=== PATIENT | female | born 1935 | race Hispanic/Latino ===

== ENCOUNTER 2019-03-15 12:18 | Emergency (ER) | payer MEDICARE ==
[2019-03-15 13:01] LABS: EOSINOPHILS % (AUTO) 1.2 % (0.0-8.0); HEMATOCRIT 39.9 % (36-48); LYMPHOCYTES % (AUTO) 30.3 % (21.0-51.0); MEAN CORPUSCULAR HEMOGLOBIN 30.8 pg (27.0-33.0); MEAN CORPUSCULAR HGB CONC 33.3 g/dL (32.0-36.0); MEAN CORPUSCULAR VOLUME 92.5 fL (79-99); MONOCYTES % (AUTO) 5.8 % (3.0-13.0); NEUTROPHILS % (AUTO) 60.7 % (40.0-77.0); NUCLEATED RED BLOOD CELLS 0.1 % (0.0-0.19); PLATELET COUNT (AUTO) 268 K/uL (130-400); RED BLOOD CELL COUNT(AUTO) 4.32 MIL/uL (4.00-5.50); RED CELL DISTRIBUTION WIDTH 13.9 % (11.0-15.5); WHITE BLOOD COUNT (AUTO) 8.8 K/uL (4.8-10.8)
[2019-03-15] MEDS ORDERED: MORPHINE SULFATE 4 MG/1ML SYG ONE (13:03)
[2019-03-15] MEDS ORDERED: ONDANSETRON HCL 4 MG/2 ML VIAL ONE (13:03)
[2019-03-15 13:14] LABS: ALANINE AMINOTRANSFERASE 25 U/L (12-78); ALBUMIN 3.7 g/dL (3.5-5.0); AMYLASE 54 U/L (25-115); ASPARTATE AMINOTRANSFERASE 23 U/L (10-37); BILIRUBIN,TOTAL 0.6 mg/dL (0.2-1.0); CHLORIDE 103 mmol/L (101-111); GLUCOSE,RANDOM 103 mg/dL (70-105); LIPASE 276 U/L (114-286); POTASSIUM 3.9 mmol/L (3.5-5.1); SODIUM SERUM 140 mmol/L (136-145); TOTAL PROTEIN, SERUM 7.9 g/dL (6.0-8.3); UREA NITROGEN, BLOOD 17 mg/dL (7-18)
[2019-03-15 13:18] LABS: CARBON DIOXIDE 27 mmol/L (21-32)
== END 2019-03-15 15:06 ==
LOC: EDH 12:18
DX: A09 Infectious gastroenteritis and colitis, unspecified (principal); E78.5 Hyperlipidemia, unspecified; E11.9 Type 2 diabetes mellitus without complications
CPT/HCPCS: 36415; 71045; 74176; 80053; 82150; 83690; 84484; 85025; 93005; 96374; 96375; 99285; J2270; J2405

== ENCOUNTER 2023-03-21 14:07 | Emergency (ER) | payer MEDICARE ==
[~2023-03-21] VITALS: Ht 132.1 cm; Wt 86.6 kg
[~2023-03-21 14:07] MED LIST: LACT10SO5 PO
[2023-03-21] MEDS ORDERED: ONDANSETRON 4MG INJ IVP ONE (15:30)
[2023-03-21] MEDS ORDERED: MORPHINE 2 MG SYG IVP ONE (15:30)
[2023-03-21 15:34] LABS: APPEARANCE,URINE CLEAR (CLEAR); BILIRUBIN,URINE NEGATIVE (NEGATIVE); COLOR,URINE LIGHT-YELLOW (YELLOW); GLUCOSE, URINE (UA) NEGATIVE (NEGATIVE); KETONES,URINE NEGATIVE (NEGATIVE); LEUKOCYTE ESTERASE ,URINE NEGATIVE Leu/uL (NEGATIVE); NITRATE,URINE NEGATIVE (NEGATIVE); OCCULT BLOOD,URINE NEGATIVE (NEGATIVE); PROTEIN,URINE NEGATIVE (NEGATIVE); UROBILINOGEN,URINE 0.2 mg/dL (0.2-1.0)
[2023-03-21 15:57] LABS: BASOPHILS % (AUTO) 0.5 % (0.0-5.0); EOSINOPHILS % (AUTO) 1.6 % (0.0-8.0); HEMATOCRIT 40.6 % (36-48); LYMPHOCYTES % (AUTO) 22.7 % (21.0-51.0); MEAN CORPUSCULAR HEMOGLOBIN 30.4 pg (27.0-33.0); MEAN CORPUSCULAR VOLUME 92.1 fL (79-99); NEUTROPHILS % (AUTO) 68.9 % (40.0-77.0); PLATELET COUNT (AUTO) 281 K/uL (130-400); RED BLOOD CELL COUNT(AUTO) 4.41 MIL/uL (4.00-5.50); RED CELL DISTRIBUTION WIDTH 13.2 % (11.0-15.5); WHITE BLOOD COUNT (AUTO) 8.9 K/uL (4.8-10.8)
[2023-03-21 16:16] LABS: CREATININE 1.1 mg/dL (0.5-1.5); POTASSIUM 4.2 mmol/L (3.5-5.1)
[2023-03-21 16:20] LABS: ALBUMIN 3.7 g/dL (3.5-5.0); TOTAL PROTEIN, SERUM 7.8 g/dL (6.0-8.3)
[2023-03-21] MEDS ORDERED: IOHEXOL 350 MG/ML 100ML INFUS..BTL IV ONE (18:16)
[2023-03-21] MEDS ORDERED: NAPR-1192 PO (19:36)
[2023-03-21] MEDS ORDERED: KETOROLAC 30MG VIAL (30MG/ML) ONE (19:39)
[2023-03-21] MEDS ORDERED: KETOROLAC 15MG/ML VIAL (15MG/ML) ONE (19:48)
[2023-03-21] MEDS ORDERED: KETOROLAC 30MG VIAL (30MG/ML) IVP ONE (20:00)
[2023-03-21 20:16] VITALS: BP 128/60
== END 2023-03-21 20:17 | disposition home or self-care (01) ==
LOC: EDH 14:07
DX: R10.32 Left lower quadrant pain (principal); J44.9 Chronic obstructive pulmonary disease, unspecified; E11.9 Type 2 diabetes mellitus without complications; E78.00 Pure hypercholesterolemia, unspecified; I10 Essential (primary) hypertension; K59.00 Constipation, unspecified; Z79.4 Long term (current) use of insulin
CPT/HCPCS: 99285; 74177; 96374; 96375; 82150; 84484; 80053; 83690; 85025; 83605; 81003; 36415; 93005 ×2; J2270; J2405; J1885 ×2; Q9967

== ENCOUNTER 2023-04-01 05:38 | Emergency (ER) | payer MEDICARE ==
[~2023-04-01 05:38] MED LIST changes: +NAPR-1192 PO
[2023-04-01 06:42] LABS: BASOPHILS % (AUTO) 0.3 % (0.0-5.0); EOSINOPHILS % (AUTO) 2.3 % (0.0-8.0); HEMATOCRIT 36.4 % (36-48); LYMPHOCYTES % (AUTO) 30.9 % (21.0-51.0); MEAN CORPUSCULAR HEMOGLOBIN 30.7 pg (27.0-33.0); MEAN CORPUSCULAR HGB CONC 33.5 g/dL (32.0-36.0); MEAN CORPUSCULAR VOLUME 91.7 fL (79-99); MONOCYTES % (AUTO) 6.7 % (3.0-13.0); NEUTROPHILS % (AUTO) 59.1 % (40.0-77.0); PLATELET COUNT (AUTO) 279 K/uL (130-400); RED BLOOD CELL COUNT(AUTO) 3.97 MIL/uL (4.00-5.50); RED CELL DISTRIBUTION WIDTH 13.1 % (11.0-15.5); WHITE BLOOD COUNT (AUTO) 8.6 K/uL (4.8-10.8)
[2023-04-01 06:56] LABS: ALBUMIN 3.4 g/dL (3.5-5.0); CREATININE 1.6 mg/dL (0.5-1.5); POTASSIUM 4.5 mmol/L (3.5-5.1); TOTAL PROTEIN, SERUM 7.5 g/dL (6.0-8.3)
[2023-04-01] MEDS ORDERED: DIAZEPAM 5 MG/ML 2 ML SYG IVP ONE (07:30)
[2023-04-01] MEDS ORDERED: KETOROLAC 30MG VIAL (30MG/ML) IVP ONE (07:30)
[2023-04-01] MEDS ORDERED: METOCLOPRAMIDE 10 MG/2 ML VIAL IVP ONE (07:30)
[2023-04-01] MEDS ORDERED: FAMOTIDINE 20MG VIAL IV ONE (07:30)
[2023-04-01 12:17] LABS: APPEARANCE,URINE CLEAR (CLEAR); BILIRUBIN,URINE NEGATIVE (NEGATIVE); COLOR,URINE LIGHT-YELLOW (YELLOW); GLUCOSE, URINE (UA) NEGATIVE (NEGATIVE); KETONES,URINE NEGATIVE (NEGATIVE); LEUKOCYTE ESTERASE ,URINE NEGATIVE Leu/uL (NEGATIVE); NITRATE,URINE NEGATIVE (NEGATIVE); OCCULT BLOOD,URINE NEGATIVE (NEGATIVE); PROTEIN,URINE NEGATIVE (NEGATIVE); UROBILINOGEN,URINE 0.2 mg/dL (0.2-1.0)
[2023-04-01] MEDS ORDERED: MELO-106 PO (12:59)
[2023-04-01] MEDS ORDERED: CYCL10TA16 PO (12:59)
[2023-04-01 13:58] VITALS: BP 132/69
== END 2023-04-01 13:59 | disposition home or self-care (01) ==
LOC: EDH 05:38
DX: M62.838 Other muscle spasm (principal); M51.34 Other intervertebral disc degeneration, thoracic region; M51.36 Other intervertebral disc degeneration, lumbar region; J44.9 Chronic obstructive pulmonary disease, unspecified; I12.9 Hypertensive chronic kidney disease with stage 1 through stage 4 chronic kidney disease, or unspecified chronic kidney disease; E11.22 Type 2 diabetes mellitus with diabetic chronic kidney disease; N18.9 Chronic kidney disease, unspecified; E78.00 Pure hypercholesterolemia, unspecified; Z79.1 Long term (current) use of non-steroidal anti-inflammatories (NSAID); Z90.49 Acquired absence of other specified parts of digestive tract
CPT/HCPCS: 99285; 74176; 96374; 96375; 71045; 84484; 80053; 83690; 85025; 81003; 36415; 74018; J3490; J3360; J1885; J2765